=== PATIENT | male | born 1990 | race Caucasian/White ===

== ENCOUNTER 2017-02-14 13:54 | Emergency (ER) | payer OTHER ==
[~2017-02-14] VITALS: Ht 162.6 cm; Wt 67.5 kg
[~2017-02-14 13:54] MED LIST: CEFT250T8 PO; Z.0.NO CURRENT MEDS
[2017-02-14 14:00] VITALS: BP 134/90; PULSE 98; RESP 16; TEMP 98.3; O2SAT 99
[2017-02-14] MEDS ORDERED: NEUR800T PO (15:39)
[2017-02-14] MEDS ORDERED: CYCL5TAB PO (16:12)
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
== END 2017-02-14 16:28 | disposition home or self-care (01) ==
LOC: PHEFT 13:54
DX: M54.6 Pain in thoracic spine (principal); Z87.891 Personal history of nicotine dependence; T14.8 Other injury of unspecified body region; V47.5XXA Car driver injured in collision with fixed or stationary object in traffic accident, initial encounter; Y93.9 Activity, unspecified; Y92.9 Unspecified place or not applicable; Y99.9 Unspecified external cause status
CPT/HCPCS: 99283